=== PATIENT | female | born 2000 | race Caucasian/White ===

== ENCOUNTER 2021-07-25 19:47 | Emergency (ER) | payer MEDICAID ==
[~2021-07-25] VITALS: Ht 165.1 cm; Wt 53.6 kg
[2021-07-25 20:00] VITALS: BP 117/42
--- NOTE | 2021-07-25 21:02 | NUR ---
Pt is wearing a velcro wrist splint on R wrist.
--- NOTE | 2021-07-25 21:10 | NUR ---
Pt given and understands d/c instructions. Ambulatory with a steady gait.
== END 2021-07-25 21:10 | disposition home or self-care (01) ==
LOC: ER 19:47
DX: M25.531 Pain in right wrist (principal); R22.31 Localized swelling, mass and lump, right upper limb
CPT/HCPCS: 29125; 73110; 99283

== ENCOUNTER 2022-04-04 17:20 | Emergency (ER) | payer MEDICAID | END 2022-04-04 20:01 | disposition left against medical advice (07) | LOC: ER 17:20 | DX: M54.9 Dorsalgia, unspecified (principal); Z53.21 Procedure and treatment not carried out due to patient leaving prior to being seen by health care provider ==